=== PATIENT | female | born 1965 | race Caucasian/White ===

== ENCOUNTER 2017-02-02 09:57 | Emergency (ER) | payer BC ==
--- NOTE | 2017-02-02 10:47 | ED ---
Abdominal Pain/Female - HPI Summary HPI Summary: Pt here w/ RLQ pain. 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 Initially felt pulling sensation like a strained muscle but denies change in activity. RLQ worse w/ sitting and with driving over bumps on the way here. She had a watery diarrhea stool last night accompanied by nausea d/t pain. Last ate dinner around 7p which did not exacerbate sx nor alleviate them. Denies fever, chills, nausea, vomiting currently (reports she has 1-2 normal BM' s per day - no h/o constipation nor diverticulitis however she has never had a colonoscopy). Also reprots a h/o renal stones, once so bad she had acute renal failure. Was started on allopurinol and went 6 years w/o kidney stones. She's been off of this medication for 7 years now w/o kidney stone. Denies dysuria, urinary frequency, hematuria, flank pain and flat out states this does not feel the same as any kidney stone she's had in the past. NYLA 16 yrs ago d/t recurrent ovarian cysts and precancerous cervical cells - after 2 cone bx's, she opted to have this out as the cells were creeping up into her uterus. Denies vaginal pain today and no d/c or irritation. She has not had a change in diet nor does she take any medications - no recent anbx. She is s/p cholecystectomy but still has her appendix. No known h/o hernia (s), GERD or other digestive tract issues. States she is overall healthy w/ a h/ o hypotension and hypoglycemia - these have been well controlled through proper eating habits. - History of Current Complaint Chief Complaint: EDAbdPain Stated Complaint: LOWER RT ABD PAIN Time Seen by Provider: 02/02/17 10:10 Hx Obtained From: Patient Pain Intensity: 10 Allergies/Adverse Reactions: Allergies Allergy/AdvReac Type Severity Reaction Status Date / Time Acetaminophen [From Tylenol] Allergy Unknown Verified 02/02/17 11:26 Reaction Details Ketorolac Tromethamine Allergy Unknown Verified 02/02/17 11:26 [From Toradol] Reaction Details PMH/Surg Hx/FS Hx/Imm Hx Previously Healthy: Yes Endocrine/Hematology History: Denies: Hx Anticoagulant Therapy, Hx Blood Disorders, Hx Diabetes, Hx Thyroid Disease, Hx Unexplained Bleeding, Autoimmune Disease Respiratory History: Reports: Hx Chronic Obstructive Pulmonary Disease (COPD) - Emphysema - has not had bronchitis in years and no daily or PRN inhalers GI History: Reports: Hx Gall Bladder Disease - s/p cholecystectomy Denies: Hx Cirrhosis, Hx Crohn's Disease, Hx Diverticulosis, Hx Gastroesophageal Reflux Disease, Hx Gastrointestinal Bleed, Hx Hiatal Hernia, Hx Irritable Bowel, Hx Obstructive Bowel, Hx Ulcer History: Reports: Hx Kidney Stones - better w/ allopurinol in the past, Other Problems/Disorders - ovarian cysts, precancerous cervical cells; s/p NYLA Sensory History: Reports: Hx Contacts or Glasses Opthamlomology History: Reports: Hx Contacts or Glasses Infectious Disease History: No Infectious Disease History: Denies: Traveled Outside the [place] in Last 30 Days - Family History Known Family History: Positive: Cardiac Disease, Diabetes, Other - lung cancer - Social History Occupation: Employed Full-time Lives: With Family Alcohol Use: None - h/o moderate drinking - no known residual effects Hx Substance Use: No Substance Use Type: Reports: None Hx Tobacco Use: Yes Smoking Status (MU): Current Every Day Smoker Review of Systems Negative: Fever, Chills Negative: Palpitations, Chest Pain Negative: Shortness Of Breath, Cough Gastrointestinal: Other - see HPI Positive: see HPI Negative: Arthralgia, Myalgia Negative: Rash, Bruising Neurological: Negative Negative: Weakness, Paresthesia, Numbness Psychological: Normal All Other Systems Reviewed And Are Negative: Yes Physical Exam Triage Information Reviewed: Yes Vital Signs On Initial Exam: Initial Vitals Temp Pulse Resp BP Pulse Ox 98.2 F 94 20 142/80 99 02/02/17 09:59 02/02/17 09:59 02/02/17 09:59 02/02/17 09:59 02/02/17 09:59 Vital Signs Reviewed: Yes Appearance: Positive: Well-Appearing, Pain Distress - mild - pt sitting on bed on Lt hip, opening Rt side of abdomen, Obese Skin: Positive: Warm, Dry Head/Face: Positive: Normal Head/Face Inspection Eyes: Positive: Normal, EOMI, Conjunctiva Clear - anicteric sclera ENT: Positive: Hearing grossly normal, Pharynx normal - mucosa moist Neck: Positive: Supple Respiratory/Lung Sounds: Positive: Clear to Auscultation, Breath Sounds Present. Negative: Rales, Rhonchi, Wheezes Cardiovascular: Positive: Normal, RRR, S1, S2 Abdomen Description: Positive: Soft, McBurney's Point Tenderness, Other: - referred pain to RLQ w/ RUQ palpation - equivocal rebounding; LLQ and LUQ NTTP; (-) Rovsing's sign from Lt sided palpation. Negative: CVA Tenderness (R), CVA Tenderness (L) Bowel Sounds: Positive: Present Musculoskeletal: Positive: Normal, Strength/ROM Intact Neurological: Positive: Normal, Sensory/Motor Intact, Alert, Oriented to Person Place, Time, CN Intact II-III Psychiatric: Positive: Normal Diagnostics - Vital Signs Vital Signs Temp Pulse Resp BP Pulse Ox 02/02/17 09:59 98.2 F 94 20 142/80 99 - Laboratory Result Diagrams: 02/02/17 10:40 02/02/17 10:40 Lab Statement: Any lab studies that have been ordered have been reviewed, and results considered in the medical decision making process. Re-Evaluation - Re-Evaluation First Eval Change: Unchanged Abdominal Pain Fem Course/Dx - Course Course Of Treatment: Pt presents w/ RLQ pain - upon exam, she has referred pain from RUQ to RLQ. CT exam reveals possible diverticulitis of the transverse colon at the hepatic flexure although mass cannot be ruled out. With elevated WBC, will tx as diverticulitis but had a conversation with pt about the importance of f/u w/ PCP. Strongly encouraged a colonoscopy once healed to r/o other pathology. Also discussed incidental findings of Rt kidney cyst and hematuria w/o known cause - advised pt to f/u w/ PCP here as well. Pt agrees w/ plan and will call to establish w/ a PCP this week. Reviewed danger s/sx of when to return to ED. Pt voices understanding. - Diagnoses Provider Diagnoses: Diverticulitis large intestine, Hematuria, Kidney cysts Discharge - Discharge Plan Condition: Stable Disposition: HOME Prescriptions: Amoxicillin/Clavulanate TAB* [Augmentin TAB 875*] 875 mg PO BID #20 tab Patient Education Materials: Diverticulitis (ED), Hematuria (ED), Kidney Cyst ( ED) Forms: *Work Release Referrals: Margot Mondragon MD [Primary Care Provider] - [facility] [Outside] Additional Instructions: Clears for 24-48 hours - take antibiotics as directed.You may take ibuprofen as needed for pain. Follow-up with PCP this week - call today to establish. Discuss diverticulitis as well as incidental findings of hematuria and kidney cyst. It is recommended that you have a colonoscopy when your inflammation/infection clears. *If you develop fever, chills, vomiting, bloody diarrhea, worsening of pain, return to ED
[2017-02-02 10:51] LABS: Hematocrit 45 % (35-47); Hemoglobin 14.9 g/dl (12.0-16.0); Mean Corpuscular HGB Conc 34 g/dl (31-36); Mean Corpuscular Hemoglobin 31 pg (27-31); Mean Corpuscular Volume 91 fL (80-97); Mean Platelet Volume 8 um3 (7.4-10.4); Red Blood Count 4.89 10^6/ul (4.0-5.4); Red Cell Distribution Width 14 % (10.5-15); White Blood Count 12.5 10^3/ul (3.5-10.8)
[2017-02-02 11:10] LABS: Albumin 4.6 g/dL (3.2-5.2); BUN/Creatinine Ratio 12.3 (8-20); C Reactive Protein 46.14 mg/L (< 5.00); Calcium 9.8 mg/dL (8.6-10.3); EGFR African American 108.1 (>60); Globulin 3.2 g/dL (2-4); Potassium 3.9 mmol/L (3.5-5.0); Total Bilirubin 0.6 mg/dL (0.2-1.0); Total Protein 7.8 g/dL (6.4-8.9)
[2017-02-02] MEDS ORDERED: Iohexol 300* (CONTRAST) 10 ML SDV IV ONE (11:41)
[2017-02-02 12:45] LABS: Urine Bacteria Absent (Absent); Urine Bilirubin Negative (Negative); Urine Glucose Negative (Negative); Urine Nitrite Negative (Negative)
[2017-02-02 13:46] VITALS: BP 127/93
--- NOTE | 2017-02-02 14:00 | RAD ---
Indication: Right lower quadrant pain, diarrhea. Contrast: Administered 111.0 ml of OMNIPAQUE 300 mg/ml CT of the abdomen and pelvis was performed after oral and IV contrast administration. Coronal and sagittal reconstructed images were obtained. The lung bases demonstrate no pleural fluid, nodules or masses. Heart is of normal size without evidence of pericardial effusion. The liver is normal in size. No focal lesions or intrahepatic ductal dilatation is noted. The patient is status post cholecystectomy. Common duct is prominent likely due to postcholecystectomy state. The pancreas demonstrates no mass or pancreatic ductal dilatation. The spleen is normal in size. No adrenal lesions are noted. The kidneys demonstrate symmetric nephrograms without focal lesions. Low density lesion in the lower pole of the right kidney is noted. These are likely representing cysts. Tiny cortical cysts are noted in the left kidney. No hydronephrosis is noted. Aorta demonstrates atherosclerosis. No retroperitoneal adenopathy is noted. In the transverse colon just adjacent to the splenic flexure there is focal wall thickening noted. There is diverticula noted. Pericolonic inflammatory changes are noted. This likely represents diverticulitis. Underlying neoplasm is not excluded and follow-up exam is suggested. No evidence of peridiverticular abscess is noted. Scattered diverticula are noted throughout the remainder of the colon. CT of the pelvis demonstrates patient is status post hysterectomy. The urinary bladder is unremarkable. No hernia is noted. The appendix is visualized and is normal. No evidence of bowel obstruction is noted. IMPRESSION: IN THE TRANSVERSE COLON JUST ADJACENT TO THE HEPATIC FLEXURE THERE IS FOCAL WALL THICKENING WITH THE COLONIC INFILTRATION OF FAT. SUBMUCOSAL EDEMA WITH DIVERTICULA ARE NOTED AND THIS MAY REPRESENT DIVERTICULITIS. NO EVIDENCE OF PERIDIVERTICULAR ABSCESS IS NOTED. UNDERLYING MASS IS NOT EXCLUDED AND FOLLOW-UP EXAM IS SUGGESTED. SCATTERED DIVERTICULA ARE PRESENT THROUGHOUT THE REMAINDER OF THE COLON. NORMAL APPENDIX. LIKELY RENAL CYSTS ARE NOTED IN THE LOWER POLE OF THE RIGHT KIDNEY.
== END 2017-02-02 15:11 | disposition home or self-care (01) ==
LOC: ED 09:57
DX: K57.92 Diverticulitis of intestine, part unspecified, without perforation or abscess without bleeding (principal); N28.1 Cyst of kidney, acquired; R10.31 Right lower quadrant pain; R31.9 Hematuria, unspecified
CPT/HCPCS: 36415; 74177; 80053; 81003; 81015; 83605; 83690; 85025; 86140; 99283; Q9967

== ENCOUNTER → 2017-04-09 02:44 | Emergency (ER) | payer BC ==
[~2017-04-09 02:44] MED LIST: HYDROcodone/ACETAMIN 5-325 MG* 1 TAB PO ONE; HYDROmorphone* 1 MG/ML 1 ML SYR IV ONE; NS 0.9% 1000 ML* 1,000 ML IV ONE; Ondansetron INJ* 2 MG/ML VIAL IV ONE; Tamsulosin CAP* 0.4 MG PO ONE; cefTRIAXone(*) 1 GM in NS 0.9% 50 ML* 50 ML IVPB ONE
[2017-04-09 03:46] LABS: ALT 19 U/L (7-52); Albumin 4.2 g/dL (3.2-5.2); Alkaline Phosphatase 76 U/L (34-104); BUN/Creatinine Ratio 15.6 (8-20); Blood Urea Nitrogen 14 mg/dL (6-24); C Reactive Protein 3.55 mg/L (< 5.00); CO2 Carbon Dioxide 29 mmol/L (22-32); Calcium 9.2 mg/dL (8.6-10.3); Chloride 103 mmol/L (101-111); EGFR African American 84.9 (>60); Globulin 2.8 g/dL (2-4); Glucose 121 mg/dL (70-100); Lipase 29 U/L (11.0-82.0); Sodium 139 mmol/L (133-145)
[2017-04-09 03:52] LABS: Hematocrit 45 % (35-47); Hemoglobin 14.8 g/dl (12.0-16.0); Mean Corpuscular HGB Conc 33 g/dl (31-36); Mean Corpuscular Hemoglobin 30 pg (27-31); Mean Corpuscular Volume 91 fL (80-97); Mean Platelet Volume 9 um3 (7.4-10.4); Red Blood Count 4.89 10^6/ul (4.0-5.4); Red Cell Distribution Width 14 % (10.5-15); White Blood Count 8.4 10^3/ul (3.5-10.8)
[2017-04-09 03:55] LABS: Urine Bacteria Absent (Absent); Urine Bilirubin Negative (Negative); Urine Glucose Negative (Negative); Urine Nitrite Negative (Negative)
--- NOTE | 2017-04-09 05:43 | ED ---
Wendie Gaviria Rebecca, scribed for Jocelyne Pandey MD on 04/09/17 at 0316 . Back Pain - HPI Summary HPI Summary: Pt is a 51 y/o F who presents to the ED with a CC of L flank pain. Pain began suddenly at 0000 today, waking up the pt from her sleep. Pain is discrete to the L flank without radiation and has been constant since onset. Pain is characterized as sharp and is currently moderate, while earlier it was severe. Sx aggravated and alleviated by nothing. Additionally c/o hematuria and N/V. PMHx kidney stones. Previously was taking Allopurinol for kidney stones and she has not experienced one in many years. Pt reports she had a general physical yesterday (04/08/2017) by a MACHINE HEEL SPRAYER in preparation for a colonoscopy. - History of Current Complaint Chief Complaint: EDFlankPain Stated Complaint: LEFT FLANK PAIN Time Seen by Provider: 04/09/17 03:15 Hx Obtained From: Patient Onset/Duration: Sudden Onset, Still Present Onset/Duration: Started Hours Ago - 3 hours ago, Still Present Timing: Constant Back Pain Location: Is Discrete @ - L flank Severity Initially: Severe Severity Currently: Moderate Pain Intensity: 5 Pain Scale Used: 0-10 Numeric Character: Sharp Aggravating Symptom(s): Nothing Alleviating Symptom(s): Nothing Associated Signs And Symptoms: Positive: Other - Hematuria, N/V - Allergies/Home Medications Allergies/Adverse Reactions: Allergies Allergy/AdvReac Type Severity Reaction Status Date / Time Acetaminophen [From Tylenol] Allergy Airway Verified 04/09/17 03:05 Obstruction Ketorolac Tromethamine Allergy Airway Verified 04/09/17 03:05 [From Toradol] Obstruction PMH/Surg Hx/FS Hx/Imm Hx Endocrine/Hematology History: Denies: Hx Anticoagulant Therapy, Hx Blood Disorders, Hx Diabetes, Hx Thyroid Disease, Hx Unexplained Bleeding Cardiovascular History: Denies: Hx Hypertension Respiratory History: Reports: Hx Chronic Obstructive Pulmonary Disease (COPD) - Emphysema - has not had bronchitis in years and no daily or PRN inhalers GI History: Reports: Hx Diverticulosis, Hx Gall Bladder Disease - s/p cholecystectomy Denies: Hx Cirrhosis, Hx Crohn's Disease, Hx Gastroesophageal Reflux Disease , Hx Gastrointestinal Bleed, Hx Hiatal Hernia, Hx Irritable Bowel, Hx Obstructive Bowel, Hx Ulcer History: Reports: Hx Kidney Stones - better w/ allopurinol in the past, Hx Renal Disease - KIDNEY STONES, Other Problems/Disorders - ovarian cysts, precancerous cervical cells; s/p NYLA Sensory History: Reports: Hx Contacts or Glasses Opthamlomology History: Reports: Hx Contacts or Glasses - Surgical History Surgery Procedure, Year, and Place: , NYLA, X 2 C-SECTIONS Infectious Disease History: No Infectious Disease History: Denies: Traveled Outside the [place] in Last 30 Days - Family History Known Family History: Positive: Cardiac Disease, Diabetes, Other - lung cancer - Social History Occupation: Employed Full-time Lives: With Family Alcohol Use: None - h/o moderate drinking - no known residual effects Hx Substance Use: No Substance Use Type: Reports: None Hx Tobacco Use: Yes Smoking Status (MU): Current Every Day Smoker Review of Systems Positive: Vomiting, Nausea Positive: hematuria Positive: Arthralgia - L flank pain All Other Systems Reviewed And Are Negative: Yes Physical Exam - Summary Physical Exam Summary: General: Well appearing, no pain distress Skin: Warm, Skin Color Reflects Adequate Perfusion, Dry Eyes: EOMI, LORIN ENT: Pharynx normal, TMs normal Neck: Supple, nontender Respiratory: CTA, breath sounds present, no rhonchi, no wheezes, no rales Cardiovascular: RRR, no murmur, no rub, no gallop Abdomen: Soft, nontender, Non-distended, no guarding, no rebound Bowel: Present Musculoskeletal: JOHNSON, No edema Neuro: Sensory/motor intact, A&Ox3, CN intact 2-12 Psych: Affect/mood appropriate Triage Information Reviewed: Yes Vital Signs On Initial Exam: Initial Vitals Temp Pulse Resp BP Pulse Ox 97.6 F 77 16 160/93 99 04/09/17 02:50 04/09/17 02:50 04/09/17 02:50 04/09/17 02:50 04/09/17 02:50 Vital Signs Reviewed: Yes Diagnostics - Vital Signs Vital Signs Temp Pulse Resp BP Pulse Ox 04/09/17 03:04 97.5 F 74 18 161/92 98 04/09/17 02:50 97.6 F 77 16 160/93 99 - Laboratory Lab Results: Lab Results 04/09/17 04/09/17 04/09/17 Range/Units 03:05 03:05 03:05 WBC 8.4 (3.5-10.8) 10^3/ul RBC 4.89 (4.0-5.4) 10^6/ul Hgb 14.8 (12.0-16.0) g/dl Hct 45 (35-47) % MCV 91 (80-97) fL MCH 30 (27-31) pg MCHC 33 (31-36) g/dl RDW 14 (10.5-15) % Plt Count 268 (150-450) 10^3/ul MPV 9 (7.4-10.4) um3 Neut % (Auto) 54.5 (38-83) % Lymph % (Auto) 35.3 (25-47) % [place] % (Auto) 6.9 (1-9) % Eos % (Auto) 2.3 (0-6) % Baso % (Auto) 1.0 (0-2) % Absolute Neuts (auto) 4.6 (1.5-7.7) 10^3/ul Absolute Lymphs (auto) 3.0 (1.0-4.8) 10^3/ul Absolute Monos (auto) 0.6 (0-0.8) 10^3/ul Absolute Eos (auto) 0.2 (0-0.6) 10^3/ul Absolute Basos (auto) 0.1 (0-0.2) 10^3/ul Absolute Nucleated RBC 0 10^3/ul Nucleated RBC % 0 Sodium 139 (133-145) mmol/L Potassium TNP Chloride 103 (101-111) mmol/L Carbon Dioxide 29 (22-32) mmol/L Anion Gap TNP BUN 14 (6-24) mg/dL Creatinine 0.90 (0.51-0.95) mg/dL Est GFR ( Amer) 84.9 (>60) Est GFR (Non-Af Amer) 66.0 (>60) BUN/Creatinine Ratio 15.6 (8-20) Glucose 121 H (70-100) mg/dL Calcium 9.2 (8.6-10.3) mg/dL Total Bilirubin 0.30 (0.2-1.0) mg/dL AST TNP ALT 19 (7-52) U/L Alkaline Phosphatase 76 (34-104) U/L C-Reactive Protein 3.55 (< 5.00) mg/L Total Protein 7.0 (6.4-8.9) g/dL Albumin 4.2 (3.2-5.2) g/dL Globulin 2.8 (2-4) g/dL Albumin/Globulin Ratio 1.5 (1-3) Lipase 29 (11.0-82.0) U/L Urine Color Yellow Urine Appearance Cloudy Urine pH 5.0 (5-9) Ur Specific [place] 1.017 (1.010-1.030) Urine Protein 1+(30 mg/dl) H (Negative) Urine Ketones Negative (Negative) Urine Blood 3+ H (Negative) Urine Nitrate Negative (Negative) Urine Bilirubin Negative (Negative) Urine Urobilinogen Negative (Negative) Ur Leukocyte Esterase Negative (Negative) Urine WBC (Auto) 2+(11-20/hpf) H (Absent) Urine RBC (Auto) 3+(>10/hpf) H (Absent) Ur Squamous Epith Cells Present H (Absent) Urine Bacteria Absent (Absent) Urine Glucose Negative (Negative) 04/09/17 Range/Units 04:15 WBC (3.5-10.8) 10^3/ul RBC (4.0-5.4) 10^6/ul Hgb (12.0-16.0) g/dl Hct (35-47) % MCV (80-97) fL MCH (27-31) pg MCHC (31-36) g/dl RDW (10.5-15) % Plt Count (150-450) 10^3/ul MPV (7.4-10.4) um3 Neut % (Auto) (38-83) % Lymph % (Auto) (25-47) % [place] % (Auto) (1-9) % Eos % (Auto) (0-6) % Baso % (Auto) (0-2) % Absolute Neuts (auto) (1.5-7.7) 10^3/ul Absolute Lymphs (auto) (1.0-4.8) 10^3/ul Absolute Monos (auto) (0-0.8) 10^3/ul Absolute Eos (auto) (0-0.6) 10^3/ul Absolute Basos (auto) (0-0.2) 10^3/ul Absolute Nucleated RBC 10^3/ul Nucleated RBC % Sodium (133-145) mmol/L Potassium 4.0 Chloride (101-111) mmol/L Carbon Dioxide (22-32) mmol/L Anion Gap BUN (6-24) mg/dL Creatinine (0.51-0.95) mg/dL Est GFR ( Amer) (>60) Est GFR (Non-Af Amer) (>60) BUN/Creatinine Ratio (8-20) Glucose (70-100) mg/dL Calcium (8.6-10.3) mg/dL Total Bilirubin (0.2-1.0) mg/dL AST 16 ALT (7-52) U/L Alkaline Phosphatase (34-104) U/L C-Reactive Protein (< 5.00) mg/L Total Protein (6.4-8.9) g/dL Albumin (3.2-5.2) g/dL Globulin (2-4) g/dL Albumin/Globulin Ratio (1-3) Lipase (11.0-82.0) U/L Urine Color Urine Appearance Urine pH (5-9) Ur Specific [place] (1.010-1.030) Urine Protein (Negative) Urine Ketones (Negative) Urine Blood (Negative) Urine Nitrate (Negative) Urine Bilirubin (Negative) Urine Urobilinogen (Negative) Ur Leukocyte Esterase (Negative) Urine WBC (Auto) (Absent) Urine RBC (Auto) (Absent) Ur Squamous Epith Cells (Absent) Urine Bacteria (Absent) Urine Glucose (Negative) Result Diagrams: 04/09/17 03:05 04/09/17 04:15 Lab Statement: Any lab studies that have been ordered have been reviewed, and results considered in the medical decision making process. - CT CT Abd/Pel CT Interpretation Completed By: Radiologist - Positive for a 3.1 mm stone at the left ureterovesicular junction. There is little, if any, left hydronephrosis /hydroureter. So it is possible that this is in the process of passing from the left ureter into the urinary bladder but it still could be intramural. There are no obstructing right renal stones. No right urinary tract obstruction. Right renal cyst noted. More made of sigmoid diverticulosis. No diverticulitis. Re-Evaluation - Re-Evaluation First Eval Re-Evaluation Time: 05:36 Change: Improved Comment: Discussed CT results with patient, so it appears as though the stone has passed. Question of whether she has a UTI remains, though there is no bacteria in the urine. Will be treated with Abx. Back Pain Course/Dx - Course Course Of Treatment: 51 yo female hx ureteral stones with left flank pain starting at midnight, ua is equivocal (high wbc, no bacteria ) cbc is normal and 3mm stone appears to be in the process of passing. Pt is being given a dose of ceftriaxone IV and home with cipro, flomax and pain meds also ordered - Diagnoses Provider Diagnoses: Ureteral stone Discharge - Discharge Plan Condition: Stable Disposition: HOME Prescriptions: Tamsulosin CAP* [Flomax CAP*] 0.4 mg PO DAILY #7 cap oxyCODONE TAB* [Roxycodone TAB 5 mg*] 5 mg PO Q8H PRN #10 tab MDD 3 PRN Reason: Pain The documentation as recorded by the Wendie conner Rebecca accurately reflects the service I personally performed and the decisions made by me, Jocelyne Pandey MD.
[2017-04-09 06:25] VITALS: BP 113/64
--- NOTE | 2017-04-09 08:23 | RAD ---
INDICATION: Left flank abdominal pain. COMPARISON: Comparison is made with a prior CT of the abdomen and pelvis from February 02, 2017. TECHNIQUE: A CT scan of the abdomen and pelvis was performed without intravenous or oral contrast. Contiguous axial sections were obtained from the lung bases through the symphysis pubis. Images were reconstructed in the coronal and sagittal planes. FINDINGS: The lung bases are clear. No pleural effusion is present. The liver and spleen are normal in size without significant focal abnormality on this noncontrast study. The patient is status post cholecystectomy. The pancreas appears to be within normal limits. The adrenal glands and kidneys are normal in size. There are several small 1 to 2 mm right renal calculi. In addition, there is mild dilatation of the left renal calyces pelvis and left ureter to the level of the ureterovesical junction. At that point there is a 3 mm calculus which causes mild hydronephrosis. There appear to be several right renal cysts which are better seen on the prior contrast enhanced study. The aorta is normal in caliber with mild calcific plaque present. No significant enlarged retroperitoneal lymph nodes are seen. The stomach, small and large bowel appear nondistended. The previously noted inflammatory change in the transverse colon appears to have resolved. There is scattered diverticuli throughout the colon without evidence for diverticulitis or colitis. The appendix appears to be within normal limits. There is a small periumbilical hernia containing fat. The patient is status post hysterectomy. No free intraperitoneal air or fluid is seen. No significant focal osseous abnormality is seen. IMPRESSION: 1. THERE IS A 3 MM CALCULUS AT THE LEFT URETEROVESICAL JUNCTION CAUSING MILD HYDRONEPHROSIS. 2. THERE ARE MULTIPLE SMALL ADDITIONAL NONOBSTRUCTING RIGHT RENAL CALCULI.
== END | disposition home or self-care (01) ==
LOC: ED 02:44
DX: N20.1 Calculus of ureter (principal); R31.9 Hematuria, unspecified; R11.2 Nausea with vomiting, unspecified; F17.210 Nicotine dependence, cigarettes, uncomplicated
CPT/HCPCS: 36415; 74176; 80053; 81003; 81015; 83690; 85025; 86140; 99283; J0696; J1170; J2405

== ENCOUNTER → 2018-09-22 20:39 | Emergency (ER) | payer SELFPAY ==
[~2018-09-22 20:39] MED LIST changes: +Clindamycin CAP* 150 MG PO ONE; -HYDROcodone/ACETAMIN 5-325 MG* 1 TAB PO ONE; -HYDROmorphone* 1 MG/ML 1 ML SYR IV ONE; +Ibuprofen TAB* 800 MG PO ONE; -NS 0.9% 1000 ML* 1,000 ML IV ONE; -Ondansetron INJ* 2 MG/ML VIAL IV ONE; -Tamsulosin CAP* 0.4 MG PO ONE; -cefTRIAXone(*) 1 GM in NS 0.9% 50 ML* 50 ML IVPB ONE
--- NOTE | 2018-09-22 22:47 | ED ---
Throat Pain/Nasal Congestion - HPI Summary HPI Summary: 53-year-old female presents with dental pain for the past couple days. States she does not have a dentist. She states that today she noticed a swelling behind her right upper teeth. She she gets abscesses in this area. States she normally has a plate in her mouth but was not able to fit today due to the swelling. She denies any pain with eye movement. She denies any swelling around eye but feels that there is swelling starting to move that way today. Denies any chest pressures or shortness of breath. No difficulty swallowing. Has been taking ibuprofen for pain which has been helping. - History of Current Complaint Chief Complaint: EDDentalPain Time Seen by Provider: 09/22/18 22:06 - Allergies/Home Medications Allergies/Adverse Reactions: Allergies Allergy/AdvReac Type Severity Reaction Status Date / Time acetaminophen Allergy Airway Verified 09/22/18 20:55 Obstruction ketorolac [From Toradol] Allergy Airway Verified 09/22/18 20:55 Obstruction PMH/Surg Hx/FS Hx/Imm Hx Endocrine/Hematology History: Denies: Hx Anticoagulant Therapy, Hx Blood Disorders, Hx Diabetes, Hx Thyroid Disease, Hx Unexplained Bleeding Cardiovascular History: Denies: Hx Hypertension Respiratory History: Reports: Hx Chronic Obstructive Pulmonary Disease (COPD) - Emphysema - has not had bronchitis in years and no daily or PRN inhalers GI History: Reports: Hx Diverticulosis, Hx Gall Bladder Disease - s/p cholecystectomy Denies: Hx Cirrhosis, Hx Crohn's Disease, Hx Gastroesophageal Reflux Disease , Hx Gastrointestinal Bleed, Hx Hiatal Hernia, Hx Irritable Bowel, Hx Obstructive Bowel, Hx Ulcer History: Reports: Hx Kidney Stones - better w/ allopurinol in the past, Hx Renal Disease - KIDNEY STONES, Other Problems/Disorders - ovarian cysts, precancerous cervical cells; s/p NYLA Sensory History: Reports: Hx Contacts or Glasses Opthamlomology History: Reports: Hx Contacts or Glasses - Surgical History Surgery Procedure, Year, and Place: GB, NYLA, X 2 C-SECTIONS Infectious Disease History: No Infectious Disease History: Denies: Traveled Outside the [place] in Last 30 Days - Family History Known Family History: Positive: Cardiac Disease, Diabetes, Other - lung cancer - Social History Alcohol Use: None Hx Substance Use: No Substance Use Type: Reports: None Hx Tobacco Use: Yes Smoking Status (MU): Current Every Day Smoker Review of Systems Negative: Fever Positive: Dental Pain Negative: Chest Pain Negative: Shortness Of Breath All Other Systems Reviewed And Are Negative: Yes Physical Exam Triage Information Reviewed: Yes Vital Signs On Initial Exam: Initial Vitals Temp Pulse Resp BP Pulse Ox 97.6 F 79 16 147/78 96 09/22/18 20:52 09/22/18 20:52 09/22/18 20:52 09/22/18 20:52 09/22/18 20:52 Vital Signs Reviewed: Yes Appearance: Positive: Well-Appearing Skin: Positive: Warm, Dry Head/Face: Positive: Normal Head/Face Inspection Eyes: Positive: Normal, EOMI, LORIN, Conjunctiva Clear ENT: Positive: Normal ENT inspection, Pharynx normal, TMs normal Dental: Positive: Percussion Tenderness @ - 6-8, Abscess @ - swelling behind 6- 8 tooth with no area of fluatance felt Neck: Positive: Supple, Nontender, No Lymphadenopathy Respiratory/Lung Sounds: Positive: Clear to Auscultation, Breath Sounds Present Cardiovascular: Positive: Normal, RRR Abdomen Description: Positive: Nontender, Soft Bowel Sounds: Positive: Present Musculoskeletal: Positive: Normal Neurological: Positive: Normal Psychiatric: Positive: Normal Diagnostics - Vital Signs Vital Signs Temp Pulse Resp BP Pulse Ox 09/22/18 20:52 97.6 F 79 16 147/78 96 - Laboratory Lab Statement: Any lab studies that have been ordered have been reviewed, and results considered in the medical decision making process. EENT Course/Dx - Course Course Of Treatment: 53-year-old female presents with dental pain for the past couple days. States she does not have a dentist. She states that today she noticed a swelling behind her right upper teeth. She she gets abscesses in this area. States she normally has a plate in her mouth but was not able to fit today due to the swelling. She denies any pain with eye movement. She denies any swelling around eye but feels that there is swelling starting to move that way today. Denies any chest pressures or shortness of breath. No difficulty swallowing. Has been taking ibuprofen for pain which has been helping. On exam has tenderness over 6-8. Some swelling noted behind the teeth but no area of fluctuance that could be drained at the moment. will treat clindamycin. Told to follow up with dentist. Patient understands agrees with plan. - Differential Diagnoses Differential Diagnoses: Dental Abscess, Dental Caries, Fractured Tooth - Diagnoses Provider Diagnoses: Dental infection Discharge - Sign-Out/Discharge Documenting (check all that apply): Patient Departure - Discharge Plan Condition: Good Disposition: HOME Prescriptions: Clindamycin Cap(NF) [Clindamycin Cap 300 mg Cap(NF)] 300 mg PO TID #20 cap Ibuprofen TAB* [Motrin TAB* 800 MG] 800 mg PO Q6H #20 tab Patient Education Materials: Dental Abscess (ED) Referrals: Margot Mondragon MD [Primary Care Provider] - Additional Instructions: Take clindamycin three times a day for 7 days Take ibuprofen every 6 hours for pain as needed Avoid hard, crunchy food until seen by dentist Return to ED if develop fever, shortness of breath, pain with eye movement or swelling around eye Establish care with dentist as soon as possible - Billing Disposition and Condition Condition: GOOD Disposition: Home Images - Images Dental: 1 - pain
[2018-09-22 23:18] VITALS: BP 00/00
== END | disposition home or self-care (01) ==
LOC: ED 20:39
DX: K04.7 Periapical abscess without sinus (principal); Z88.6 Allergy status to analgesic agent; Z88.5 Allergy status to narcotic agent; F17.200 Nicotine dependence, unspecified, uncomplicated
CPT/HCPCS: 99282; A9270-GY

== ENCOUNTER → 2019-07-28 06:36 | Day surgery (SDC) | payer BC ==
[~2019-07-28 06:36] MED LIST changes: +Buffered Lidocaine 1% SYRIN* 1 ML/SYRINGE INTRADERM ONE; +Bupivacaine 0.25% SDV PF* 10 ML VIAL INJ ONE; -Clindamycin CAP* 150 MG PO ONE; +Dexamethasone IV* 4 MG/ML 1 ML (4 MG) ONE; -Ibuprofen TAB* 800 MG PO ONE; +Lactated Ringers 1000 ML Bag* 1,000 ML IV SCH; +Lidocaine 1% INJ* 10 MG/ML 30 ML SDV ONE; +Lidocaine 2% PF * 5 ML VIAL ONE; +Midazolam* 1 MG/ML 2 ML VIAL (2 MG) ONE; +Naloxone* 0.4 MG/ML 1 ML VIAL IV PRN; +Ondansetron INJ* 2 MG/ML VIAL IV PRN; +Propofol* 10 MG/ML 20 ML BTL ONE; +ceFAZolin 2 GM in NS PREMIX(*) 2 GM/100 ML BAG IVPB ONE
[2019-07-28 11:19] VITALS: BP 156/76
--- NOTE | 2019-07-28 17:19 | OP ---
DATE OF OPERATION: 07/28/19 - [facility] DATE OF : 65 SURGEON: Noel Hou DPM ANESTHESIA: MAC local. 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 OPERATIVE PROCEDURE: Excision of left tibial sesamoid and a left fifth metatarsal head. ESTIMATED BLOOD LOSS: Less than 10 cc. IV FLUIDS: LR 1000 cc. DRAINS: None. SPECIMENS: Tibial sesamoid from the left foot and left fifth metatarsal head. DESCRIPTION OF PROCEDURE: The patient was taken to the operating room and was placed in the supine position. Time-out was called and OR team agreed. The left foot was then blocked with 10 cc of 1% lidocaine plain at the base of the fifth metatarsal as well as another 10 cc at the base of the first metatarsal, same left foot. The foot was then prepped and draped in sterile manner. The left foot was exsanguinated with an Esmarch bandage and the cuff was inflated to 250 mmHg. Attention was then paid to the left fifth metatarsophalangeal joint where I made a linear incision with a 15 blade. This was followed by sharp and blunt dissection starting from the epidermis, dermis, subcutaneous tissue, and deep fascia. The capsule was reached. The fifth metatarsophalangeal joint was incised and then the incision was taken down through the joint where I was able to get a full view of the fifth metatarsal head. I went ahead and resected the fifth metatarsal head at the level of the neck. Once this was completed, I irrigated the site and the procedure was deemed completed. I went ahead and then closed the wound in a layered and anatomical fashion with a deep layers closed with 3-0 Vicryl and the skin was closed with 4-0 nylon. I then injected a site with the combination of 5 cc of 0.25% Marcaine plain as well as 1 mg of dexamethasone phosphate. I then went ahead and paid attention to first metatarsophalangeal joint on the same left foot at the posterior aspect where there is a painful intractable plantar keratoma right at the level of the tibial sesamoid. I made a linear incision on the medial side. This was followed by sharp and blunt dissection starting from the epidermis, dermis, subcutaneous tissue, and deep fascia. The capsule was incised. I was able to get to the tibial sesamoid. I went ahead and inspected the tibial sesamoid and removed that. Once it was deemed completed, I then closed the wound in a layered anatomical fashion with the same sutures, deep layers with 3-0 Vicryl and the skin with 4-0 nylon. I then injected the site with 5 cc of 0.25% Marcaine plain as well as 1 cc of dexamethasone phosphate. This completed the procedure. The cuff was deflated. The foot was then placed in a dry sterile dressing. The patient tolerated the procedure and anesthesia well. After the cuff was deflated, I made sure that there was good capillary refill in all 5 toes of the left foot. The patient was then taken to recovery in stable condition and was later discharged in stable condition as well. [id number]/CPS #: [id number] MTDD
== END | disposition home or self-care (01) ==
LOC: OR 06:36
PROVIDERS: ATTEND Podiatrist
DX: M25.872 Other specified joint disorders, left ankle and foot (principal); M21.622 Bunionette of left foot; F17.210 Nicotine dependence, cigarettes, uncomplicated; J44.9 Chronic obstructive pulmonary disease, unspecified; J45.909 Unspecified asthma, uncomplicated; D64.9 Anemia, unspecified; M19.90 Unspecified osteoarthritis, unspecified site; Z68.34 Body mass index [BMI] 34.0-34.9, adult
CPT/HCPCS: 88304; 88311; J0690; J1100; J2250; J2704; J3490

== ENCOUNTER 2019-12-19 11:20 | Emergency (ER) | payer BC ==
--- OUTSIDE RECORDS SUMMARY | 2019-12-19 11:27 | XMS REPORT | Continuity of Care Document ---
:1965 External Reference #:[id number] Author Name Marlen Summers M.D. (transmitted by agent of provider Angy Lara) Address [address] [place] [id number] Care Team Providers Name Role Phone Patient's Choice Care Team Information [employer] Unavailable Problems Description No Information Available Social History Type Date Description Comments Sex Unknown ETOH Use Denies alcohol use Tobacco Use Start: Unknown Patient is a current smoker, smokes every day Smoking Status Reviewed: 10/24/19 Patient is a current smoker, smokes every day Exercise Type/Frequency Exercises sporadically Allergies, Adverse Reactions, Alerts Active Allergies Reaction Severity Comments Date Acetaminophen 04/13/2019 Ketorolac Tromethamine 04/13/2019 Latex 04/13/2019 Adhesive 04/13/2019 Medications Description No Active Medications Medications Administered in Office Medication SIG Qnty Indications Ordering Provider Date Depomedrol 40MG Marlen Summers M.D. 04/13/2019 Injection Immunizations Description No Information Available Vital Signs Date Vital Result Comment 10/24/2019 11:32am Height 64 inches 5'4" Weight 194.00 lb Heart Rate 77 /min BP Systolic Sitting 154 mmHg BP Diastolic Sitting 100 mmHg Respiratory Rate 18 /min Pain Level 8 O2 % BldC Oximetry 98 % BMI (Body Mass Index) 33.3 kg/m2 04/13/2019 10:53am Height 64 inches 5'4" Weight 196.00 lb Heart Rate 71 /min BP Systolic Sitting 156 mmHg BP Diastolic Sitting 108 mmHg Respiratory Rate 14 /min Pain Level 5 BMI (Body Mass Index) 33.6 kg/m2 Results Description No Information Available Procedures Date Code Description Status 10/24/2019 48119 Inject Tendon Sheath Or Ligament Aponeurosis Eg Plantar Completed Fascia Medical Devices Description No Information Available Encounters Description No Information Available Assessments Date Code Description Provider 10/24/2019 M65.4 Radial styloid tenosynovitis [de Quervain] Marlen Summers M.D. Plan of Treatment 10/24/2019 - Marlen Summers M.D.M65.4 Radial styloid tenosynovitis [de Quervain]Follow up:Follow up: As needed Functional Status Description No Information Available Mental Status Description No Information Available Referrals Description No Information Available
[2019-12-19 12:26] VITALS: BP 149/87
--- NOTE | 2019-12-19 15:01 | UC ---
Throat Pain/Nasal Spencer HPI - HPI Summary HPI Summary: 54-year-old female with history of COPD presents with 3-4 day history of nasal congestion, sinus pressure, postnasal drip. States this morning she started developing chest congestion, mild shortness of breath, and wheezing. Reports intermittent low-grade fevers. States has not been using her albuterol inhaler as it is . Denies ear pain, sore throat, dysphagia, chest pain, palpitations, abdominal pain, nausea, or vomiting. - History of Current Complaint Chief Complaint: UCRespiratory Stated Complaint: CHEST CONGESTION,COUGH Time Seen by Provider: 12/19/19 14:58 Hx Obtained From: Patient Pain Intensity: 7 - Allergies/Home Medications Allergies/Adverse Reactions: Allergies Allergy/AdvReac Type Severity Reaction Status Date / Time acetaminophen Allergy Airway Verified 12/19/19 12:27 Obstruction ketorolac [From Toradol] Allergy Airway Verified 12/19/19 12:27 Obstruction latex Allergy Rash And Verified 12/19/19 12:27 Itching PMH/Surg Hx/FS Hx/Imm Hx Respiratory History: COPD Other History Of: Negative For: Anticoagulant Therapy - Surgical History Surgical History: Yes Surgery Procedure, Year, and Place: 1885 & 1986 [facility] [place]. 1989 GALL BLADDER [facility] [place],. 2002 [facility], [facility] [place]. 2007 RT THUMB, TRIGGER [place] - Family History Known Family History: Positive: Cardiac Disease, Diabetes, Other - lung cancer - Social History Occupation: Employed Full-time Lives: With Family Alcohol Use: None Substance Use Type: None Smoking Status (MU): Current Every Day Smoker Type: Cigarettes Amount Used/How Often: 1/2 PPD Have You Smoked in the Last Year: Yes Household Exposure Type: Cigarettes Review of Systems All Other Systems Reviewed And Are Negative: Yes Constitutional: Positive: Fever, Fatigue Eyes: Negative: Drainage, Eye Redness ENT: Positive: Nasal Discharge, Sinus Congestion, Sinus Pain/Tenderness. Negative: Sore Throat, Ear Ache Respiratory: Positive: Shortness Of Breath, Cough, Other - Wheezing Cardiovascular: Negative: Palpitations, Chest Pain Gastrointestinal: Negative: Abdominal Pain, Vomiting, Nausea Genitourinary: Positive: Negative Musculoskeletal: Positive: Negative Neurological: Positive: Negative Is Patient Immunocompromised?: No Physical Exam - Summary Physical Exam Summary: GENERAL APPEARANCE: Well developed, well nourished, alert and cooperative, and appears to be in no acute distress. EYES: Conjunctiva clear. No drainage. EARS: External auditory canals and tympanic membranes clear, hearing grossly intact. NOSE: Moderate nasal congestion. No nasal discharge. Maxillary sinus tenderness. THROAT: Pharyngeal cobblestoning with postnasal drip. No tonsilar inflammation, swelling, exudate, or lesions. Uvula midline. NECK: Neck supple, non-tender without lymphadenopathy. CARDIAC: Normal S1 and S2. No S3, S4 or murmurs. Rhythm is regular. There is no peripheral edema, cyanosis or pallor. Extremities are warm and well perfused. Capillary refill is less than 2 seconds. Peripheral pulses intact. LUNGS: Diffuse bilateral expiratory wheezes. Mildly diminished breath sounds. Bronchospastic, nonproductive cough. ABDOMEN: Positive bowel sounds. Soft, nondistended, nontender. No guarding or rebound. No masses or hepatosplenomegally. MUSKULOSKELETAL: ROM intact to all extremities. No joint erythema or tenderness. Normal muscular development. Normal gait. SKIN: Skin normal color, texture and turgor with no lesions or eruptions. Triage Information Reviewed: Yes Vital Signs: Initial Vital Signs Temp 100.6 F 12/19/19 12:24 Pulse 78 12/19/19 12:24 Resp 17 12/19/19 12:24 BP 149/87 12/19/19 12:24 Pulse Ox 97 12/19/19 12:24 Vital Signs Reviewed: Yes Throat Pain/Nasal Course/Dx - Course Course Of Treatment: 54-year-old female with history of COPD presents with 3-4 day history of nasal congestion, sinus pressure, postnasal drip. States this morning she started developing chest congestion, mild shortness of breath, and wheezing. Reports intermittent low-grade fevers. States has not been using her albuterol inhaler as it is . Denies ear pain, sore throat, dysphagia, chest pain, palpitations, abdominal pain, nausea, or vomiting. Patient had a mildly elevated temperature of 100.6 F. Pretensive otherwise vital signs stable. Patient had moderate nasal congestion, maxillary sinus tenderness, normal TMs, pharyngeal cobblestoning with postnasal drip, no tonsillar swelling or exudate, no cervical lymphadenopathy, diffuse bilateral wheezes with some mildly decreased breath sounds, a nonproductive a bronchospastic cough, and otherwise unremarkable exam. Discussed with patient that her symptoms were consistent with an acute sinusitis with an exacerbation of her COPD. With the fever we will treat her with a course of Augmentin 875 mg 1 tablet twice daily 10 days for the sinus infection as well as recommend symptomatic treatment including fluticasone nasal spray and saline rinses. We will start her on prednisone 50 mg daily 5 days for this COPD exacerbation. I have provided her with a new prescription for her albuterol inhaler which she is to use 2 puffs every 4-6 hours as needed for shortness of breath or wheezing. Also provided her with a prescription for Tessalon Perles 1 capsule every 8 hours as needed for cough. She is to follow-up with her primary care provider in 3 days if symptoms are not improving. Anticipatory guidance and warning symptoms were reviewed with the patient. Verbalizes understanding and agrees with plan of care. - Differential Dx/Diagnosis Differential Diagnosis/HQI/PQRI: Influenza, Pharyngitis, Sinusitis, Tonsillitis , URI Provider Diagnosis: Upper respiratory infection with cough and congestion, COPD exacerbation Discharge ED - Sign-Out/Discharge Documenting (check all that apply): Patient Departure All imaging exams completed and their final reports reviewed: No Studies - Discharge Plan Condition: Stable Disposition: HOME Prescriptions: Albuterol HFA INHALER* [Ventolin HFA Inhaler*] 2 puff INH Q4H PRN #1 mdi PRN Reason: Sob/Wheezing Amoxicillin/Clavulanate TAB* [Augmentin TAB 875*] 875 mg PO BID 10 Days #20 tab Benzonatate CAP* [Tessalon 100 MG CAP*] 100 mg PO TID PRN #21 cap PRN Reason: Cough Fluticasone NASAL SPRAY 50MCG* [Flonase NASAL SPRAY 50MCG*] 2 spray BOTH NARES DAILY #1 btl predniSONE 50 mg TAB [Deltasone 50 mg TAB] 50 mg PO DAILY 5 Days #5 tab Patient Education Materials: Upper Respiratory Infection (ED), COPD (Chronic Obstructive Pulmonary Disease) (ED) Forms: *Work Release Referrals: Stephanie Tesfaye NP [Primary Care Provider] - 3 Days (If no improvement in symptoms.) Additional Instructions: Your history and exam are consistent with an acute sinusitis with an exacerbation of your COPD. Start Augmentin 875 mg 1 tablet twice a day for 10 days. Take with food to avoid upset stomach. Be sure to complete the entire course even if feeling better. Take prednisone 50 mg 1 tablet daily for the next 5 days to help decrease the inflammation her airways and improved her wheezing. Use the albuterol inhaler 2 puffs every 4-6 hours as needed for shortness of breath or wheezing. Use Tessalon Perles 1 capsule every 8 hours as needed for cough. Drink plenty of fluids to avoid dehydration especially if you are running any fever. Use a saline rinse kit such as Neti Pot or NeilMed at least twice a day to help thin secretions and promote drainage of the sinuses. Use fluticasone (Flonase) nasal spray 2 sprays each nostril once daily. Take over the counter acetaminophen (Tylenol) or ibuprofen (Advil, Motrin) according to directions as needed for pain or fever. Use salt water gargles several times a day if you have a sore throat. You may also use Chloraseptic spray or Cepacol lonzenges according to directions which contain a numbing medication and can provide some temporary relief from your sore throat. Follow up with your primary care provider in 3 days if symptoms persist. Seek immediate medical attention in the emergency room if you have fever greater than 100.5 F despite taking acetaminophen or ibuprofen, have chest pain , difficulty breathing, are unable to swallow, or have any worsening of symptoms. - Billing Disposition and Condition Condition: STABLE Disposition: Home
== END 2019-12-19 15:37 | disposition home or self-care (01) ==
LOC: UCEAST 11:20
DX: J06.9 Acute upper respiratory infection, unspecified (principal); R05 Cough; R09.89 Other specified symptoms and signs involving the circulatory and respiratory systems; J44.1 Chronic obstructive pulmonary disease with (acute) exacerbation; Z88.6 Allergy status to analgesic agent; Z91.040 Latex allergy status; F17.210 Nicotine dependence, cigarettes, uncomplicated
CPT/HCPCS: 99212; G0463